=== PATIENT | male | born 1980 | race Caucasian/White ===

== ENCOUNTER 2020-11-21 16:33 | Emergency (ER) | payer MEDICAID, OTHER, SELFPAY ==
--- NOTE | 2020-11-21 17:00 | EDM.PDOC ---
ED HPI GENERAL MEDICAL PROBLEM - General Chief Complaint: Headache Stated Complaint: HEADACHE X 5 DAYS Time Seen by Provider: 11/21/20 16:54 Source of Information: Reports: Patient, RN Notes Reviewed - History of Present Illness INITIAL COMMENTS - FREE TEXT/NARRATIVE: 40 yr old male with onset of "severe" Elizalde 4 days ago after a hard cough. The Elizalde since that time has been persitent. No nausea, vomiting, visual problems, speech, balance or motor problems. Has been alternating motrin and tylenol without much relief. [place] he was getting better yesterday and now today has been worse again. Iliac Crest Pain Score (Numeric/FACES): 6 - Related Data Allergies Allergy/AdvReac Type Severity Reaction Status Date / Time No Known Allergies Allergy Verified 11/21/20 16:55 Home Meds: Home Meds Omeprazole [Prilosec] 20 mg PO DAILY 09/14/14 [History] ALPRAZolam [Xanax] 1 mg PO 5XDAY 11/21/20 [History] Acetaminophen/oxyCODONE [Percocet 325-5 MG] 1 each PO Q6HR PRN #14 tab 11/21/20 [Rx] Ibuprofen [Motrin] 600 mg PO Q6H PRN #30 tab 11/21/20 [Rx] PARoxetine HCl [Paxil] 40 mg PO DAILY 11/21/20 [History] Past Medical History Gastrointestinal History: Reports: Celiac Disease, Other (See Below) Other Gastrointestinal History: barrets Psychiatric History: Reports: Anxiety, OCD Social & Family History - Tobacco Use Tobacco Use Status *Q: Never Tobacco User Second Hand Smoke Exposure: No - Caffeine Use Caffeine Use: Reports: Coffee - Recreational Drug Use Recreational Drug Use: Yes Recreational Drug Type: Reports: Marijuana/Hashish ED ROS GENERAL - Review of Systems Review Of Systems: See Below Constitutional: Denies: Fever, Chills, Diaphoresis HEENT: Reports: No Symptoms Respiratory: Denies: Shortness of Breath, Pleuritic Chest Pain, Cough Cardiovascular: Denies: Chest Pain GI/Abdominal: Denies: Abdominal Pain, Nausea, Vomiting Musculoskeletal: Denies: Neck Pain, Shoulder Pain, Arm Pain, Back Pain Skin: Reports: No Symptoms Neurological: Reports: Headache. Denies: Numbness, Tingling, Trouble Speaking, Difficulty Walking, Weakness - Physical Exam Exam: See Below General Appearance: Alert, Mild Distress Eye Exam: Bilateral Eye: PERRL Head Exam: Atraumatic Neck: Supple Respiratory/Chest: No Respiratory Distress, Lungs Clear, Normal Breath Sounds Cardiovascular: Regular Rate, Rhythm Neuro Exam (Abbreviated): Alert, Oriented, No Motor/Sensory Deficits, Other (finger to nose normal) Extremities: Normal Inspection, Normal Range of Motion Skin Exam: Warm, Dry, Normal Color Course - Vital Signs Last Recorded V/S: Last Vital Signs Temp 96.9 F 11/21/20 16:54 Pulse 68 11/21/20 16:54 Resp 20 11/21/20 16:54 BP 168/118 H 11/21/20 16:54 Pulse Ox 99 11/21/20 16:54 - Orders/Labs/Meds Orders: Active Orders 24 hr Category Date Time Status Peripheral IV Care [RC] . DIRECTED Care 11/21/20 17:11 Active Head wo Cont [CT] Stat Exams 11/21/20 17:14 Taken Ketorolac [Toradol] Med 11/21/20 19:00 Active 30 mg IVPUSH ONETIME Sodium Chloride 0.9% [Saline Flush] Med 11/21/20 17:10 Active 10 ml FLUSH ASDIRECTED PRN Peripheral IV Insertion Adult [OM.PC] Stat Oth 11/21/20 17:10 Ordered Medication Orders Ketorolac Tromethamine (Ketorolac 30 Mg/Ml Sdv) 30 mg IVPUSH ONETIME JARAD Sodium Chloride (Sodium Chloride 0.9% 10 Ml Syringe) 10 ml FLUSH ASDIRECTED PRN PRN Reason: Keep Vein Open Last Admin: 11/21/20 17:36 Dose: 10 ml Documented by: [id number] Labs: Laboratory Tests 11/21/20 Range/Units 17:03 SARS-CoV-2 RNA (MELANIE) Negative (NEGATIVE) Meds: Medications Generic Name Dose Route Start Last Admin Trade Name Freq PRN Reason Stop Dose Admin Ketorolac Tromethamine 30 mg 11/21/20 19:00 Ketorolac 30 Mg/Ml Sdv IVPUSH ONETIME JARAD Sodium Chloride 10 ml 11/21/20 17:10 11/21/20 17:36 Sodium Chloride 0.9% 10 Ml Syringe FLUSH 10 ml ASDIRECTED PRN Administration Keep Vein Open Discontinued Medications Generic Name Dose Route Start Last Admin Trade Name Freq PRN Reason Stop Dose Admin Diphenhydramine HCl 25 mg 11/21/20 17:10 11/21/20 17:36 Diphenhydramine 50 Mg/Ml Sdv IVPUSH 11/21/20 17:11 25 mg ONETIME ONE Administration Hydromorphone HCl 1 mg 11/21/20 17:10 11/21/20 17:36 Hydromorphone 1 Mg/Ml Syringe IVPUSH 11/21/20 17:11 1 mg ONETIME ONE Administration Hydromorphone HCl 0.5 mg 11/21/20 18:53 Hydromorphone 0.5 Mg/0.5 Ml Syringe IVPUSH 11/21/20 18:54 ONETIME ONE Metoclopramide HCl 10 mg 11/21/20 17:10 11/21/20 17:36 Metoclopramide 10 Mg/2 Ml Sdv IVPUSH 11/21/20 17:11 10 mg ONETIME ONE Administration Departure - Departure Time of Disposition: 18:59 Disposition: Home, Self-Care 01 Condition: Fair Clinical Impression: Headache Qualifiers: Headache type: unspecified Headache chronicity pattern: acute headache Intractability: not intractable Qualified Code(s): R51.9 - Headache, unspecified - Discharge Information Prescriptions: Ibuprofen [Motrin] 600 mg PO Q6H PRN #30 tab PRN Reason: Pain Acetaminophen/oxyCODONE [Percocet 325-5 MG] 1 each PO Q6HR PRN #14 tab PRN Reason: Pain Instructions: Sinus Headache, [id number] Referrals: PCP,None [Primary Care Provider] - Forms: ED Department Discharge Additional Instructions: Rest, avoid exertional activity for now. Motrin 600 mg 3 to 4 times daily. Tylenol in between doses for mild to moderate discomfort or percocet in between doses if needed for severe headache. Prescriptions have been sent to [facility]. They can be filled in the morning. Follow up with one of our clinic providers in about [address] Belle or one of our other medical providers can give you further evaluation and treatment as needed. Sepsis Event Note (ED) - Focused Exam Vital Signs: Vital Signs Temp Pulse Resp BP Pulse Ox 11/21/20 16:54 96.9 F 68 20 168/118 H 99 - My Orders Last 24 Hours: My Active Orders 11/21/20 17:10 Sodium Chloride 0.9% [Saline Flush] 10 ml FLUSH ASDIRECTED PRN Peripheral IV Insertion Adult [OM.PC] Stat 11/21/20 17:11 Peripheral IV Care [RC] . DIRECTED 11/21/20 17:14 Head wo Cont [CT] Stat 11/21/20 19:00 Ketorolac [Toradol] 30 mg IVPUSH ONETIME - Assessment/Plan Last 24 Hours: My Active Orders 11/21/20 17:10 Sodium Chloride 0.9% [Saline Flush] 10 ml FLUSH ASDIRECTED PRN Peripheral IV Insertion Adult [OM.PC] Stat 11/21/20 17:11 Peripheral IV Care [RC] . DIRECTED 11/21/20 17:14 Head wo Cont [CT] Stat 11/21/20 19:00 Ketorolac [Toradol] 30 mg IVPUSH ONETIME
[2020-11-21] MEDS ORDERED: Metoclopramide 10 MG/2 ML SDV IVPUSH ONE (17:10)
[2020-11-21] MEDS ORDERED: Sodium Chloride 0.9% 10 ML Syringe FLUSH PRN (17:10)
[2020-11-21] MEDS ORDERED: diphenhydrAMINE 50 MG/ML SDV IVPUSH ONE (17:10)
[2020-11-21] MEDS ORDERED: HYDROmorphone 1 MG/ML Syringe IVPUSH ONE (17:10)
[2020-11-21] MEDS ORDERED: HYDROmorphone 0.5 MG/0.5 ML Syringe IVPUSH ONE (18:53)
[2020-11-21] MEDS ORDERED: Ketorolac 30 MG/ML SDV IVPUSH SCH (19:00)
[2020-11-21 19:49] VITALS: BP 161/121; PULSE 79
--- NOTE | 2020-11-22 07:36 | CT ---
Head CT Technique: Multiple axial sections through the brain were obtained. Intravenous contrast was not utilized. Reconstructed coronal and sagittal images were obtained. Findings: Ventricles along with basal cisterns and sulci over the convexities appear within normal limits for the patient's age. No abnormal parenchymal densities are seen. No evidence of intracranial hemorrhage is seen. No midline shift or mass-effect is seen. Bone window settings were reviewed. The visualised mastoid sinuses and paranasal sinuses show nothing acute. No acute calvarial abnormality is appreciated. Impression: 1. Nothing acute is appreciated on noncontrast head CT study. Diagnostic code #1 I agree with preliminary report from [facility], finalized on 11/21/20, 7:28 PM CDT, code 1
== END 2020-11-21 19:20 | disposition home or self-care (01) ==
LOC: JD.ED 16:33
DX: R51.9 Headache, unspecified (principal); Z79.899 Other long term (current) drug therapy; Z20.822 Contact with and (suspected) exposure to COVID-19
CPT/HCPCS: 70450; 87635; 96374; 96375; 96376; 99284; J1170; J1200; J1885; J2765; U0002

== ENCOUNTER → 2021-02-10 | Day surgery (SDC) | payer MEDICAID ==
[~2021-02-10] MED LIST: Lactated Ringers 1,000 ML IV SCH; Lidocaine 1% 4 ML ONE; Lidocaine 1%/Sod Bicarbonate in NS 8.4% 1 ML Syringe IDERM PRN; Midazolam 1 MG/ML 2 ML SDV ONE; Propofol 200 MG/20 ML SDV ONE; Sodium Chloride 0.9% 10 ML Syringe FLUSH PRN; fentaNYL 100 MCG/2 ML SDV ONE
--- NOTE | 2021-02-10 07:26 | PCM.PREANE ---
Preanesthetic Assessment - Procedure Proposed Procedure: Diag EGD/ Screening Colonoscopy - Anesthesia/Transfusion/Family Hx Anesthesia History: Prior Anesthesia Without Reaction Family History of Anesthesia Reaction: No Transfusion History: No Prior Transfusion(s) - Review of Systems General: No Symptoms Pulmonary: No Symptoms Cardiovascular: Dyspnea on Exertion Gastrointestinal: No Symptoms Neurological: No Symptoms Other: Reports: Liver Problems ("fatty liver") - Physical Assessment NPO Status Date: 02/09/21 NPO Status Time: 05:00 Height: 1.78 m Weight: 135.171 kg ASA Class: 3 Mental Status: Alert & Oriented x3 Dentition: Reports: Implants (top front) Thyro-Mental Finger Breadths: 2 Mouth Opening Finger Breadths: 2 ROM/Head Extension: Full Lungs: Clear to Auscultation, Normal Respiratory Effort Cardiovascular: Regular Rate, Regular Rhythm - Allergies Allergies/Adverse Reactions: Allergies Allergy/AdvReac Type Severity Reaction Status Date / Time No Known Allergies Allergy Verified 02/09/21 16:41 - Blood Blood Available: No Product(s) Available: None - Anesthesia Plan Pre-Op Medication Ordered: None - Acknowledgements Anesthesia Type Planned: MAC Pt an Appropriate Candidate for the Planned Anesthesia: Yes Alternatives and Risks of Anesthesia Discussed w Pt/Guardian: Yes Pt/Guardian Understands and Agrees with Anesthesia Plan: Yes PreAnesthesia Questionnaire HEENT History: Reports: Allergic Rhinitis Cardiovascular History: Reports: None Respiratory History: Reports: None Gastrointestinal History: Reports: Celiac Disease, GERD, Other (See Below) Other Gastrointestinal History: harris's, dyspepsia, colonoscopy Genitourinary History: Reports: None [employer]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 Musculoskeletal History: Reports: Other (See Below) Other Musculoskeletal History: cervical muscle pain Neurological History: Reports: Headaches, Chronic Psychiatric History: Reports: Anxiety, OCD Endocrine/Metabolic History: Reports: Obesity/BMI 30+ Hematologic History: Reports: None Immunologic History: Reports: None Oncologic (Cancer) History: Reports: None Dermatologic History: Reports: None - Infectious Disease History Infectious Disease History: Reports: None - Past Surgical History Head Surgeries/Procedures: Reports: None HEENT Surgical History: Reports: None Cardiovascular Surgical History: Reports: None Respiratory Surgical History: Reports: None GI Surgical History: Reports: None Female Surgical History: Reports: None Male Surgical History: Reports: None Endocrine Surgical History: Reports: None Neurological Surgical History: Reports: None Musculoskeletal Surgical History: Reports: Other (See Below) Other Musculoskeletal Surgeries/Procedures:: elbow fracture with repair and later hardware removal Oncologic Surgical History: Reports: None Dermatological Surgical History: Reports: None - SUBSTANCE USE Tobacco Use Status *Q: Former Tobacco User Tobacco Use Within Last Twelve Months: No Second Hand Smoke Exposure: No Days Per Week of Alcohol Use: 0 Number of Drinks Per Day: 0 Total Drinks Per Week: 0 Recreational Drug Use History: No Recreational Drug Type: Reports: Marijuana/Hashish (legal in [place] but has not had any scince) - HOME MEDS Home Medications: Home Meds Omeprazole [Prilosec] 20 mg PO DAILY 09/14/14 [History] ALPRAZolam [Xanax] 1 mg PO Q6H PRN 11/21/20 [History] PARoxetine HCl [Paxil] 40 mg PO DAILY 11/21/20 [History] Cyclobenzaprine [Flexeril] 10 mg PO TID PRN 02/09/21 [History] Vitamin B Complex 1 cap PO DAILY 02/09/21 [History] - CURRENT (IN HOUSE) MEDS Current Meds: Current Medications Lactated Ringer's (Ringers, Lactated) 1,000 mls @ 125 mls/hr IV ASDIRECTED JARAD Lidocaine/Sodium Bicarbonate (Lidocaine 1%/Sod Bicarbonate In Ns 8.4% 1 Ml Syringe) 0.25 ml IDERM ONETIME PRN PRN Reason: Prior to IV Start Sodium Chloride (Sodium Chloride 0.9% 10 Ml Syringe) 10 ml FLUSH ASDIRECTED PRN PRN Reason: Keep Vein Open
--- NOTE | 2021-02-10 09:05 | PCM.PRNOTE ---
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 Prep was very good, cecum reached. Total of 6 polyps removed; three of which appeared consistent with hyperplastic polyps within the rectum. Minor internal hemorrhoidal disease. Detailed Report: The patient was taken to the endoscopy suite and placed in left lateral decubitus position. A bite block was placed in the patient's mouth, timeout was performed and monitored anesthesia care was initiated. The endoscope was inserted in the mouth and advanced to the duodenum with ease. The duodenum appeared normal. Scope was withdrawn into the stomach and no gastric lesions or other abnormalities were noted. On retroflexion and observation for 1 minute, no hiatal hernia was appreciated. The scope was withdrawn into the distal esophagus. There appeared to be tongues of salmon-colored mucosa extending proximally consistent with gross Robin metaplasia. Several biopsies were taken along the length of this abnormal appearing mucosa in 4 quadrants. Air was suctioned from the stomach prior to withdrawal of the scope. The remainder the esophagus appeared normal. Next, attention was turned to colonoscopy. The anus appeared normal and digital rectal exam was unremarkable. The colonoscope was inserted and advanced to the cecum. On entry, a pedunculated polyp measuring a little less than 1 cm was identified, and this was addressed immediately with hot snare. The specimen was successfully retrieved. The cecum was reached and the appendiceal orifice and ileocecal junction were visualized. Prep was very good. The scope was slowly withdrawn and mucosal surfaces carefully inspected. A sessile erythematous lesion was identified near the hepatic flexure. Attempts to snare this lesion were made but were unsuccessful due to the flat nature of the lesion. It was removed piecemeal using cold forceps, and the tip of the snare was used to coagulate the remaining tissue. A diminutive polyp was identified in the descending colon and removed with cold forceps. Within the proximal rectum, a few very small benign-appearing polyps that looked like hyperplastic polyps were identified. These were removed using cold forceps. On retroflexion in the rectum, internal hemorrhoidal disease was appreciated though this was mild. Air was suctioned from the distal colon and rectum prior to withdrawal of the scope. The patient tolerated the procedure well.
--- NOTE | 2021-02-10 09:05 | PCM48HPAN ---
Post Anesthesia Note - EVALUATION WITHIN 48HRS OF ANESTHETIC Vital Signs in Normal Range: Yes Patient Participated in Evaluation: Yes Respiratory Function Stable: Yes Airway Patent: Yes Cardiovascular Function Stable: Yes Hydration Status Stable: Yes Pain Control Satisfactory: Yes Nausea and Vomiting Control Satisfactory: Yes Mental Status Recovered: Yes Vital Signs: Last Vital Signs Temp 36.7 C 02/10/21 07:15 Pulse 82 02/10/21 07:15 Resp 19 02/10/21 07:15 BP 128/89 02/10/21 07:15 Pulse Ox 96 02/10/21 07:15 - COMMENTS/OBSERVATIONS Free Text/Narrative:: no anesthesia complications noted
[2021-02-10 09:40] VITALS: BP 129/79; PULSE 79
== END | disposition home or self-care (01) ==
LOC: JD.SDS 07:31
PROVIDERS: ATTEND Surgery
DX: Z12.11 Encounter for screening for malignant neoplasm of colon (principal); D12.5 Benign neoplasm of sigmoid colon; K62.1 Rectal polyp; K22.70 Barrett's esophagus without dysplasia; K64.8 Other hemorrhoids; F41.9 Anxiety disorder, unspecified; K21.9 Gastro-esophageal reflux disease without esophagitis; E66.01 Morbid (severe) obesity due to excess calories; Z79.899 Other long term (current) drug therapy; Z98.890 Other specified postprocedural states; Z87.891 Personal history of nicotine dependence; Z68.42 Body mass index [BMI] 45.0-49.9, adult
CPT/HCPCS: 43239; 45380; 45385; J2250; J2704; J3010; J7120; 00813

== ENCOUNTER 2021-03-14 12:29 | Emergency (ER) | payer MEDICAID ==
[2021-03-14 12:42] VITALS: BP 145/97; PULSE 90
[2021-03-14] MEDS ORDERED: ALPRAZolam 1 MG Tab PO ONE (12:53)
[2021-03-14] MEDS ORDERED: Famotidine 20 MG Tab PO ONE (12:54)
[2021-03-14 14:16] LABS: CORONAVIRUS COVID-19 NAA NEGATIVE (NEGATIVE)
== END 2021-03-14 14:13 ==
LOC: JD.ED 12:29
DX: S00.03XA Contusion of scalp, initial encounter (principal); F10.129 Alcohol abuse with intoxication, unspecified; F13.20 Sedative, hypnotic or anxiolytic dependence, uncomplicated; K21.9 Gastro-esophageal reflux disease without esophagitis; E66.9 Obesity, unspecified; Z79.899 Other long term (current) drug therapy; Z86.16 Personal history of COVID-19; Z68.41 Body mass index [BMI] 40.0-44.9, adult; Z20.822 Contact with and (suspected) exposure to COVID-19; W10.8XXA Fall (on) (from) other stairs and steps, initial encounter
CPT/HCPCS: 0241U; 70450; 99284; A9270